=== PATIENT | female | born 2000 | race Caucasian/White ===

== ENCOUNTER 2022-06-26 11:36 | Emergency (ER) | payer BC, SELFPAY ==
[2022-06-26 11:47] VITALS: BP 114/72; PULSE 94; RESP 20; TEMP 36.7; O2SAT 100
--- NOTE | 2022-06-26 12:18 | ED.FEMALEGU ---
HPI - Female Genitourinary General Chief complaint: [employer] Stated complaint: yeast infection Time Seen by Provider: 06/26/22 12:18 Source: patient and RN notes reviewed Mode of arrival: ambulatory Limitations: no limitations History of Present Illness HPI Narrative: 22 y/o female presented for c/o vaginal itching for 2 days. At the onset of symptoms, she felt 'uti symptoms' for which she took AZO, then started her menstrual cycle. Then she developed vaginal swelling along with the itching. Continues to have mild burning sensation. Denies abnormal vaginal discharge, skin lesions, or irregular bleeding. She is sexually active, unsure of risk for STD.Denies abdominal pain, n/v/d/f/c. Related Data Allergies Allergy/AdvReac Type Severity Reaction Status Date / Time No Known Allergies Allergy Verified 06/26/22 11:43 Review of Systems Review of Systems: CONSTITUTIONAL: Denies body aches, fever, chills, or sweats. CARDIOVASCULAR: Denies chest pain, palpitations, or edema. RESPIRATORY: Denies cough or dyspnea. GASTROINTESTINAL: Denies abdominal pain, nausea, vomiting, or diarrhea. GENITOURINARY: per HPI SKIN: Denies rash, itching, or wounds. MUSCULOSKELETAL: Denies back pain or myalgia. PMFSH Comments At time of signature, I have reviewed and agree with nursing past medical, surgical, social and family history unless otherwise noted. Please see nursing chart for further information. There is no relevant family history pertinent to the presenting complaint Exam Narrative: GENERAL: Well-appearing CHEST: Clear to auscultation. HEART: Regular rate and rhythm. ABDOMEN: Soft, nontender, nondistended, normal active bowel sounds. No CVA tenderness : deferred on menses SKIN: Warm, dry, no rash. NEURO: Alert and oriented x3. PSYCH: Normal affect. Course Course Emergency Course: Patient is aware of diagnosis, understands and agrees to treatment plan. Anticipatory guidance given. Patient agrees to follow-up as directed and is aware of reasons to seek care at the emergency department. Portions of this record may have been created with voice recognition software Level of Care: Express Care Visit Vital Signs Vital signs: Vital Signs Temperature 98.1 F 06/26/22 11:47 Pulse Rate 94 06/26/22 11:47 Respiratory Rate 20 06/26/22 11:47 Blood Pressure 114/72 06/26/22 11:47 Pulse Oximetry 100 06/26/22 11:47 Temperature 98.1 F 06/26/22 11:47 Pulse Rate 94 06/26/22 11:47 Respiratory Rate 20 06/26/22 11:47 Blood Pressure 114/72 06/26/22 11:47 Pulse Oximetry 100 06/26/22 11:47 Reviewed MDM - Female Genitourinary MDM Narrative Medical decision making narrative: Patient presenting with vaginal irritation, itching, swelling for 2 days. Symptoms worsened after menses while using sanitary pads. Urine dip showed Nitrites. Taking azo. Urine specimen collected for GC, chlamydia, trich. Informed Pt will be contacted w/ results when they become available if they are positive. Discussed with patient that it takes up to 7 days for results of cultures to be released, no indication for empiric treatment. Will give Rx to treat for yeast at this time. Urine sent for culture. I have instructed the patient to return to the ER at any time if there are any new or worsening symptoms. The patient expressed understanding of and agreement with this plan. Differential Diagnosis Differential diagnosis: Likely urinary tract infection, bacterial vaginosis, trichomoniasis, vaginitis and cystitis Discharge Plan Discharge Clinical Impression: Vaginal irritation Patient Disposition: Home, Self-Care Condition: Stable Instructions: Yeast Infection (ED) Additional Instructions: Your urine will be sent of for a culture to determine if bacteria is causing your symptoms. If the culture shows a UTI, you will be notified and an antibiotic will be called in for you. Your urine sample has been sent off to test for
== END 2022-06-26 12:40 | disposition home or self-care (01) ==
PROVIDERS: Emergency Provider Nurse Practitioner Family
DX: R10.2 Pelvic and perineal pain (principal)
CPT/HCPCS: 81003; 87086; 87491; 87591; 87661; 99214; G0463